=== PATIENT | male | born 1945 | race Caucasian/White ===

== ENCOUNTER 2018-01-14 12:45 | Inpatient (IN) | payer OTHER ==
[~2018-01-14] VITALS: Ht 172.7 cm; Wt 78.9 kg
[2018-01-14] MEDS ORDERED: CARVEDILOL25 MG PO (13:39)
[2018-01-14] MEDS ORDERED: RESTORIL30 MG PO (13:39)
[2018-01-14] MEDS ORDERED: VALSARTAN-HCTZ1 EAC3 PO (13:39)
[2018-01-14] MEDS ORDERED: ATORVASTATIN CA10 MG PO (13:39)
== END 2018-01-18 18:56 | disposition home or self-care (01) | DRG 331 ==
LOC: SURH 01-15 10:34 → O/R 01-15 10:34 → SURH 01-15 12:45
PROVIDERS: Colon & Rectal Surgery
PROC: 0DTP4ZZ Resection of Rectum, Percutaneous Endoscopic Approach (ICD-10-PCS; 2018-01-15)
PROC: 07TC4ZZ Resection of Pelvis Lymphatic, Percutaneous Endoscopic Approach (ICD-10-PCS; 2018-01-15)
PROC: 0DJD8ZZ Inspection of Lower Intestinal Tract, Via Natural or Artificial Opening Endoscopic (ICD-10-PCS; 2018-01-15)
PROC: 3E0336Z Introduction of Nutritional Substance into Peripheral Vein, Percutaneous Approach (ICD-10-PCS; 2018-01-15)
PROC: 0DTN4ZZ Resection of Sigmoid Colon, Percutaneous Endoscopic Approach (ICD-10-PCS; principal; 2018-01-15 13:00)
DX: C20 Malignant neoplasm of rectum (principal); R59.0 Localized enlarged lymph nodes; I11.9 Hypertensive heart disease without heart failure; E78.4 Other hyperlipidemia; Z95.1 Presence of aortocoronary bypass graft